=== PATIENT | male | born 1980 | race Two or more races ===

== ENCOUNTER 2025-11-20 17:56 | Emergency (ER) | payer MEDICAID, SELFPAY ==
[2025-11-20 18:00] VITALS: BMI 27.3
--- NOTE | 2025-11-20 18:02 | EKG_ITS ---
[facility] Test Date: 2025-11-20 Pat Name: CHRIS MONTIEL Department: Room: - Gender: Male [employer]ician: : 1980 Requested By: Bonny Antonio Order Number: [id number] Reading MD: Bonny Antonio Measurements Intervals Morris Rate: 61 P: 57 ND: 150 QRS: 80 QRSD: 97 T: 49 QT: 400 QTc: 404 Interpretive Statements SINUS RHYTHM No previous ECG available for comparison /store/S0/[id number].pdf
[2025-11-20 18:07] VITALS: BP 136/88; PULSE 72; RESP 16; TEMP 36.6; O2SAT 100
--- NOTE | 2025-11-20 18:11 | XR_ITS ---
Examination: Abdomen sonogram, complete Date and time of exam: November 20, 2025, 1905 hours INDICATIONS: Intermittent abdominal pain this week. Technique: Multiple real-time grayscale transabdominal sonographic images of the abdomen have been obtained. Findings: Normal gallbladder Common bile duct 0.6 cm no stones Pancreatic head 2.4 cm Aorta not enlarged Liver 14.3 cm fatty infiltration Normal hepatopetal portal venous flow Patent IVC Right kidney 10.5 cm cortex 1.4 cm Left kidney 9.6 cm renal cortex 1.6 cm Mild renal scarring Spleen 12.2 cm. IMPRESSION: Negative for cholelithiasis, negative for cholecystitis No acute process
--- NOTE | 2025-11-20 19:07 | EDNOTE_ITS ---
ED Medical Clearance RME/HPI General Chief complaint: Medical Clearance Stated complaint: [facility] CLEARANCE Arrival date/time: 11/20/25 17:56 RME / HPI Exam: 45-year-old male with PMH of substance use disorder including HEROIN and alcohol presenting from half-way for medical clearance. He also complained of 3 weeks of dark stool and was noted to have bright red blood per rectum on exam while in half-way. Per patient, has been substituting HEROIN with IBUPROFEN in effort to sustain from COCAINE use. He reports taking Q2H large family/bottles of IBUPROFEN over the last 2 weeks. He states he has done that multiple times as it helps him wean off HEROIN. Also reports dizziness and lightheadedness on standing from seated position. Denies fever, chills, headaches, chest pain, sob, cough, GI or urinary symptoms. On evaluation he appeared in no distress, no abdominal pain noted on exam. Hgb 12.0, PLT 231, FOBT was negative, AST 50 ALT 45 ALP 450. Normal renal function and elytes. He likely has gastritis related to alcohol and excessibe NSAID use. Will discharge home on PPI, to follow-up closely with PCP for repeat H&H. Recommended avoiding NSAID and alcohol/drugs cessation. Patient agrees to treatment and plan. Related Information Previous Rx's ?Medication ?Instructions ?Recorded pantoprazole 40 mg granules 40 mg PO QDAY #30 ea 11/20 delayed-release for susp in packet (Protonix) Allergies Allergy/AdvReac Type Severity Reaction Status Date / Time No Known Allergies Allergy Verified 11/20/25 18:06 ED Exam Narrative Physical exam: GENERAL * Normal appearing male, NAD. HEENT * NCAT.?BERNABE. Oral mucosa is moist. Patent Nares NECK * Supple, nontender, no JVD. CHEST * RRR, no m/g/r * CTAB, no w/r/r, symmetrical expansion. ABDOMEN * Soft, flat, nontender. No guarding/rebound tenderness/masses. * Bowel sounds presents EXTREMITIES * No edema/cyanosis.? SKIN * Warm and dry, no jaundice/rashes. NEUROMUSCULAR * No lumbar or midline, no CVA, no paraspinal muscle spasm or tenderness. * Moves all 4 extremities well, with full ROM and good CSM. * FOREMAN x4, CN II-XII grossly intact. * No focal neurologic deficits. PSYCHIATRY * Normal mood and affect, cooperative, no SI or HI or hallucinations. Course Quality Measures VTE prophylaxis Orders Category Date Time Status EKG (ED ONLY) *Do not use* NOW Care 11/20/25 18:03 Completed NPO NOW Care 11/20/25 18:09 Completed NPO after Midnight ONCE Care 11/20/25 19:36 Completed Occult Blood,Stool (Nursing) ONCE Care 11/20/25 18:02 Completed Consult to Gastroenterology Routine Cons 11/20/25 18:10 Ordered EKG (ED Only) Stat Exams 11/20/25 18:02 Draft US abdomen Stat Exams 11/20/25 18:11 Completed CBC Stat Lab 11/20/25 18:50 Completed CMP [Comprehensive Metabolic Panel] Stat Lab 11/20/25 18:50 Completed Pantoprazole Inj [Protonix Inj] Med 11/20/25 21:00 Discontinued 40 mg IVP BID Sodium Chloride 0.9% 1000 ml [Ns] 1,000 ml Med 11/20/25 18:15 Discontinued IV 100 mls/hr Vital Signs Vital signs: Vital Signs Temperature 97.9 F 11/20/25 18:07 Pulse Rate 72 11/20/25 18:07 Respiratory Rate 16 11/20/25 18:07 Blood Pressure 136/88 H 11/20/25 18:07 Pulse Oximetry (%) 100 11/20/25 18:07 Oxygen Delivery Method Room Air 11/20/25 18:07 Medical Clearance Patient data External records reviewed:: [facility] previous records Clinical information provided by:: patient Social determinants that could affect healthcare access:: substance use Patient has the following chronic illnesses:: HEROIN use disorder, alcohol use disorder How is presenting disease/condition affected by chronic disease/condition?: caused by Evaluation data The following diagnostics were reviewed and interpreted by me:: lab results and radiology exam(s) Lab and/or radiology exams considered but not ordered:: N/A Interpretation Summary: Acute gastritis secondary to excessive NSAID use and alcohol use Medications / Prescriptions Medications or Prescriptions considered but not ordered:: N/A Medication administrations:: Medication Administration History Discontinued Medications Sodium Chloride (Ns) 1,000 mls @ 100 mls/hr IV .Q10H MAURY Stop: 12/20/25 18:14 Last Admin: 11/20/25 19:31 Dose: 100 mls/hr Documented By: AC Pantoprazole Sodium (Pantoprazole Inj 40 Mg Vial) 40 mg IVP BID MAURY Stop: 12/20/25 20:59 N/A Consultations Consultation(s) initiated? (list below): No Diagnosis Medical Clearance Differential Diagnosis: other (Gastritis) Most likely diagnosis given after review of the tests above:: Gastritis Admission Indicated Admission indicated?: not indicated Admission Request Was there a request for admission?: No Disposition Plan Disposition Plan: Discharge Discharge Attestation Discharge Attestation: The patient and all family members were given an opportunity to ask questions and understood the discharge instructions. Discharge instructions specifically effects, indications for sooner follow up or return to the emergency department, and the expected course of current diagnosis. Patient condition: Stable Discharge Plan Plan Patient Disposition: HOME (Self Care) Patient condition on transfer: Stable Health Concerns: * Follow-up with PCP within 1-2 weeks of discharge. * Recommended repeat H&H in one week, please discuss with your pcp. * Avoid NSAID which can worsen abominal pain and increase the risk of stomach ulcer and bleed. Use TYELNOL as needed for pain and not daily. * Recommended alcohol cessation as it can irritate your stomach lining and worsen gastritis. * Recommended cessation from ilicit drugs. * Continue taking PROTONIX 40 mg daily every day regardless of symptoms. Please discuss with PCP if you should continue taking this medication for longer period. * Continue taking medications as prescribed below. * Return to Emergency Room if symptoms persist, worsen, or new symptoms develop. Prescriptions/Referrals Prescriptions/Med Rec: New pantoprazole [Protonix] [address] for susp in packet 40 mg PO QDAY Qty: 30 0RF Rx Instructions: Take one tablet daily Referrals: Darci Cordero PA-C [Primary Care Provider] - In 1 week Problem List Clinical Impression: Gastritis Patient/Caregiver Discharge Instructions Education Materials: ED Gastritis (Adult) Print Language: Emirati Stand Alone Forms: Dina Award Info., Patient Portal Info Letter
[2025-11-20 19:29] LABS: Basophils # (Auto) 0.0 Thou/mm3 (0.0-0.2); Basophils % (Auto) 0 % (0-2.5); Eosinophils # (Auto) 0.1 Thou/mm3 (0.0-0.5); Eosinophils % (Auto) 1 % (0-10); Hematocrit 36.9 % (41.0-53.0); Hemoglobin 12.0 g/dL (13.5-16.0); Immature Granulocytes Auto 0.01 Thou/mm3 (0.00-0.00); Lymphocytes # (Auto) 1.1 Thou/mm3 (1.0-4.8); Lymphocytes % (Auto) 22 % (10-50); Mean Corpuscular HGB Conc 32.5 g/dl (31.0-37.0); Mean Corpuscular Hemoglobin 28.2 pg (25.0-35.0); Mean Corpuscular Volume 87 fL (80-100); Monocytes # (Auto) 0.4 Thou/mm3 (0.0-0.8); Monocytes % (Auto) 9 % (0-12); Neutrophils # (Auto) 3.3 Thou/mm3 (1.8-7.7); Neutrophils % (Auto) 68 % (37-80); Nucleated Red Blood Cell # 0.00 Thou/mm3 (0.00-0.00); Nucleated Red Blood Cell % 0 /100 WBC (0); Platelet Count 231 Thou/mm3 (140-440); RDW Standard Deviation 42.5 fL (35.1-43.9); Red Blood Count 4.26 Miln/mm3 (4.50-5.90); White Blood Count 4.9 Thou/mm3 (3.8-10.6)
[2025-11-20] MEDS: SODIUM CHLORIDE 0.9% 1000 ML 1,000 ML 100 ML IV (19:31)
[2025-11-20 19:32] VITALS: BP 120/77; PULSE 72; RESP 18; TEMP 36.6; O2SAT 100
[2025-11-20 19:48] LABS: Alanine Aminotransferase 45 U/L (10-49); Albumin, Serum 4.2 gm/dL (3.5-5.0); Albumin/Globulin Ratio 1.2 (1.2-2.2); Alkaline Phosphatase 450 U/L (46-116); Anion Gap 8 (7-16); Aspartate Amino Transferase 50 U/L (0-34); BUN/Creatinine Ratio 19 Ratio (12-20); Bilirubin,Total 0.5 mg/dL (0.3-1.2); Blood Urea Nitrogen 15 mg/dL (9-23); Calcium 9.2 mg/dL (8.3-10.6); Calcium (Corrected) 9.2 mg/dL (8.5-10.1); Carbon Dioxide 27.0 mMol/L (20.0-31.0); Chloride 106 mMol/L (98-107); Creatinine (Component) 0.8 mg/dL (0.6-1.3); Estimated Creatinine Clearance 115.4 mL/min (>60); Globulin 3.5 gm/dL (2.3-3.5); Glucose 79 mg/dL (74-106); Osmolality,Calculated 281 (275-295); Potassium 3.8 mMol/L (3.4-5.1); Sodium 141 mMol/L (136-145); Total Protein 7.7 gm/dL (5.7-8.2); eGFR > 60 See Note
[2025-11-20 20:00] VITALS: BP 121/77; PULSE 69; RESP 17; TEMP 36.4; O2SAT 100
[2025-11-20 20:55] VITALS: BP 112/83; PULSE 78; RESP 18; TEMP 36.6; O2SAT 100
== END 2025-11-20 20:57 | disposition home or self-care (01) ==
PROVIDERS: Emergency Provider Emergency Medicine; PCP Physician Assistant
DX: Z02.89 Encounter for other administrative examinations (principal); K29.71 Gastritis, unspecified, with bleeding
CPT/HCPCS: 36415; 76700; 80053; 85025; 86850; 86900; 86901; 93005; 99283; J7030